=== PATIENT | female | born 1955 | race Two or more races ===

== ENCOUNTER 2018-06-21 17:36 | Emergency (ER) | payer MEDICAID, OTHER ==
[~2018-06-21] VITALS: Ht 157.5 cm; Wt 49.0 kg
[2018-06-21 17:51] VITALS: BP 147/63
[2018-06-21] MEDS ORDERED: cefTRIAXone SOD 1,000 MG VL IM ONE (20:30)
[2018-06-21] MEDS ORDERED: methylPREDNISolone SOD SUCC 125 MG/2 ML VL IM ONE (20:30)
== END 2018-06-21 21:03 | disposition home or self-care (01) ==
LOC: ER 17:46
DX: J32.9 Chronic sinusitis, unspecified (principal)
CPT/HCPCS: 70486; 96372; 99284; J0696; J2930

== ENCOUNTER 2024-10-24 10:18 | Inpatient (IN) | payer OTHER, MEDICAID ==
[~2024-10-24] VITALS: Ht 152.4 cm; Wt 51.5 kg
--- NOTE | 2024-10-24 10:33 | ED.PDOC ---
History of Present Illness HPI Comments 69-year-old female BIBA with prior medical history of hypertension, high lipids in the chief complaint of chest pain. EMS note that the patient is a Czech speaker. EMS reports the patient stated on sternal chest pain for three days after eating. Patient States the she has an increase in pain after eating and has been unable to do so since then. Patient on scene had a blood pressure of 160/80. Denies chills, fever, N/V/D, SOB. No other associated symptoms, modifiers, recent injuries or sick contacts present at this time. Time Seen by MD: 10:25 Primary Care Provider: NONE Reviewed Notes: Nurses Notes, Medications, Allergies Allergies: Coded Allergies: NO KNOWN ALLERGIES (Unverified , 06/21/18) Information Source: Patient Mode of Arrival: EMS Severity: Moderate Timing: Days Duration: Since onset, Days Prehospital treatment: None Past Medical History PAST MEDICAL HISTORY: High Lipids, HTN Surgical History: Denies all surgeries [employer] History: No Pertinent [employer] History Family History Family History: Reviewed,noncontributory to illness, Unknown Social History Smoker: Non-Smoker Alcohol: Denies ETOH Use Drugs: Denies Drug Use Lives In: Home Constitutional: denies: chills, diaphoresis, fatigue, fever, malaise, sweats, weakness, others EENTM: denies: blurred vision, double vision, ear bleeding, ear discharge, ear drainage, ear pain, ear ringing, eye pain, eye redness, hearing loss, mouth pain, mouth swelling, nasal discharge, nose bleeding, nose congestion, nose pain, photophobia, tearing, throat pain, throat swelling, voice changes, others Respiratory: denies: cough, hemoptysis, orthopnea, SOB at rest, shortness of breath, SOB with excertion, stridor, wheezing, others Cardiovascular: reports: chest pain; denies: dizzy spells, diaphoresis, Dyspnea on exertion, edema, irregular heart beat, left arm pain, lightheadedness, palpitations, PND, syncope, others Gastrointestinal: denies: abdomen distended, abdominal pain, blood streaked bowels, constipated, diarrhea, dysphagia, difficulty swallowing, hematemesis, melena, nausea, poor appetite, poor fluid intake, rectal bleeding, rectal pain, vomiting, others Genitourinary: denies: abnormal vagina bleeding, burning, dyspareunia, dysuria, flank pain, frequency, hematuria, incontinence, pain, , vagina discharge, urgency, others Neurological: denies: dizziness, fainting, headache, left sided numbness, left sided weakness, numbness, paresthesia, pre-existing deficit, right sided numbness, right sided weakness, seizure, speech problems, tingling, tremors, weakness, others Musculoskeletal: denies: back pain, gout, joint pain, joint swelling, muscle pain, muscle stiffness, neck pain, others Integumetry: denies: bruises, change in color, change in hair/nails, dryness, laceration, lesions, lumps, rash, wounds, others Allergic/Immunocompromised: denies: Difficulty Healing, Frequent Infections, Hives, Itching, others Hematologic/Lymphatic: denies: anemia, blood clots, easy bleeding, easy bruising, swollen glands, others Endocrine: denies: excessive hunger, excessive sweating, excessive thirst, excessive urination, flushing, intolerance to cold, intolerance to heat, unexplained weight gain, unexplained weight loss, others Psychiatric: denies: anxiety, bipolar disorder, depression, hopeless, panic disorder, schizophrenia, sleepless, suicidal, others All Other Systems: Reviewed and Negative Physical Exam General Appearance: Moderate Distress, Normal HEENT: Normal ENT Inspection, Pharynx Normal, TMs Normal Neck: Full Range of Motion, Non-Tender, Normal, Normal Inspection Respiratory: Chest Non-Tender, Lungs Clear, No Accessory Muscle Use, No Respiratory Distress, Normal Breath Sounds Cardiovascular: No Edema, No JVD, No Murmur, No Gallop, Normal Peripheral Pulses, Regular Rate/Rhythm Breast Exam: Deferred Gastrointestinal: No Organomegaly, Non Tender, No Pulsatile Mass, Normal Bowel Sounds, Soft Genitalia: Deferred Pelvic: Deferred Rectal: Deferred Extremities: No calf tenderness, Normal capillary refill, Normal inspection, Normal range of motion, Non-tender, No pedal edema Musculoskeletal : Apperance: Normal Neurologic: Alert, 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 Was a procedure done?: No EKG EKG : Pulse Rate (adult): 71 [place]: Normal Cardiac Rhythm: NSR Block: None Hypertrophy: None ST: Normal Differential Dx Considerations may include: Anemia Electrolyte imbalance X-Ray, Labs, Meds, VS Vital Signs Date Time Temp Pulse Resp B/P (MAP) Pulse Ox O2 Delivery O2 Flow Rate FiO2 10/24/24 13:00 56 15 150/77 (101) 98 10/24/24 11:15 63 14 97 Room Air* 0 21 10/24/24 11:15 97.9 63 14 162/76 (104) 97 97.9 10/24/24 10:59 98.0 67 16 160/80 (106) 98 98.0 10/24/24 10:33 71 10/24/24 10:21 71 Lab Test 10/24/24 12:04 10/24/24 11:21 10/24/24 10:56 Range/Units Troponin I High Sensitivity < 3 L < 3 L </=34 ng/L Urine Color Colorless Yellow Urine Clarity Clear Clear Urine pH 7.0 5.0-9.0 Urine Specific [place] 1.003 1.001-1.035 Urine Protein Negative Negative Urine Ketones Negative Negative Urine Blood 2+ H Negative /uL Urine Nitrite Negative Negative Urine Bilirubin Negative Negative Urine Urobilinogen Normal Negative mg/dL Urine Leukocyte Esterase Negative Negative /uL Urine RBC 2 0 - 4 /hpf Urine Microscopic WBC < 1 0-5 /HPF Urine Squamous Epithelial Cells None seen <5 /hpf Urine Bacteria None seen None Seen /hpf Urine Glucose Normal Normal mg/dL White Blood Count 4.8 4.4-10.8 10^3/uL Red Blood Count 4.23 4.0-5.20 10^6/uL Hemoglobin 13.0 12.2-16.2 g/dL Hematocrit 38.9 36.0-46.0 % Mean Corpuscular Volume 92.1 80.0-100.0 fL Mean Corpuscular Hemoglobin 30.8 28.0-32.0 pg Mean Corpuscular Hemoglobin Concent 33.5 32.0-36.0 g/dL Red Cell Distribution Width 13.7 11.8-14.3 % Platelet Count 220 140-450 10^3/uL Mean Platelet Volume 8.3 6.9-10.8 fL Neutrophils (%) (Auto) 75.1 37.0-80.0 % Lymphocytes (%) (Auto) 16.4 10.0-50.0 % Monocytes (%) (Auto) 7.5 0.0-12.0 % Eosinophils (%) (Auto) 0.8 0.0-7.0 % Basophils (%) (Auto) 0.2 0.0-2.0 % Neutrophils # (Auto) 3.6 1.6-8.6 10 ^3/uL Lymphocytes # (Auto) 0.8 0.4-5.4 10 ^3/uL Monocytes # (Auto) 0.4 0-1.3 10 ^3/uL Eosinophils # (Auto) 0 0-0.8 10 ^3/uL Basophils # (Auto) 0 0-0.2 10 ^3/uL Nucleated Red Blood Cells 0.0 % Sodium Level 144 136-145 mmol/L Potassium Level 3.4 L 3.5-5.1 mmol/L Chloride Level 107 98-107 mmol/L Carbon Dioxide Level 30 20-31 mmol/L Anion Gap 7 5-15 Blood Urea Nitrogen 7 L 9-23 mg/dL Creatinine 0.53 L 0.550-1.02 mg/dL Glomerular Filtration Rate Calc 99 >90 mL/min BUN/Creatinine Ratio 13.2 10.0-20.0 Serum Glucose 115 H 74-106 mg/dL Calcium Level 9.9 8.7-10.4 mg/dL Current Medications Medications (Trade) Dose Ordered Sig/Raji Route Start Time Stop Time Status Last Admin Aspirin 325 mg ONCE ONCE PO 10/24/24 10:45 10/24/24 10:46 DC 10/24/24 11:02 Patient alert. Complaining of chest pain. Has been having this pain for many days. Vitals stable. Was given aspirin. Possible pleurisy. She possibly will need stress test. Echocardiogram. Has few risk factors for coronary artery disease. EKG does not show any acute changes. Explained to the patient. Continue monitoring. Time of 1ST Reevaluation: 10:55 Reevaluation 1ST: Unchanged Patient Education/Counseling: Diagnosis, Treatment, Prognosis Family Education/Counseling: No Family Present SEPSIS Sepsis Screen Physician Orders Electrocardigram (10/24/24 10:32) Electrocardigram (10/24/24 11:32) Electrocardigram (10/24/24 13:32) Chest Portable (10/24/24 10:35) Troponin-I Hs (10/24/24 13:35) Vital Signs Date Time Temp Pulse Resp B/P (MAP) Pulse Ox O2 Delivery O2 Flow Rate FiO2 10/24/24 13:00 56 15 150/77 (101) 98 10/24/24 11:15 63 14 97 Room Air* 0 21 10/24/24 11:15 97.9 63 14 162/76 (104) 97 97.9 10/24/24 10:59 98.0 67 16 160/80 (106) 98 98.0 10/24/24 10:33 71 10/24/24 10:21 71 Laboratory Tests Test 10/24/24 10:56 White Blood Count 4.8 10^3/uL (4.4-10.8) Medications Medications Dose Ordered Sig/Raji Route Start Time Stop Time Status Last Admin Dose Admin Aspirin 325 mg ONCE ONCE PO 10/24/24 10:45 10/24/24 10:46 DC 10/24/24 11:02 Departure 1 Departure Time of Disposition: 11:20 Impression: Primary Impression: Chest pain of unknown etiology Disposition: ADMITTED INPATIENT Admit to: Med Surg Condition: Guarded Critical Care Note Critical Care Time?: Yes (90 min-critical care time only) Critical care comment: Continue to monitor Stability Stability form required: No Heart Score Heart Score: Heart Score Response (Comments) Value History Slightly Suspicious 0 EKG Normal 0 Age >65 2 Risk Factors 1 or 2 risk factors 1 Troponin Normal limit 0 Total 3 I personally scribed for JOEL ROBERTSON MD ([email or web address]) on 10/24/24 at 10:33. Electronically submitted by Darius Block ([email or web address]). JOEL ROBERTSON MD Oct 24, 2024 10:33
--- NOTE | 2024-10-24 11:05 | DVH ---
CHEST RADIOGRAPH Indication: sob Technique: Single frontal view of the chest was obtained COMPARISON: None FINDINGS: Lines and Tubes: None Lungs: Clear Pleura: No effusion. No pneumothorax. Cardiomediastinal contours: Unremarkable Bones: Unremarkable IMPRESSION: No acute disease.
[2024-10-24 11:15] VITALS: PULSE 63; RESP 14; O2SAT 97
[2024-10-24 11:28] LABS: Hematocrit 38.9 % (36.0-46.0); Hemoglobin 13.0 g/dL (12.2-16.2); Mean Corpuscular Hemoglobin 30.8 pg (28.0-32.0); Mean Corpuscular Volume 92.1 fL (80.0-100.0); Nucleated Red Blood Cells % 0.0 %
[2024-10-24 11:30] LABS: Sodium 144 mmol/L (136-145)
[2024-10-24 11:31] LABS: Anion Gap 7 (5-15); Calcium 9.9 mg/dL (8.7-10.4); Carbon Dioxide 30 mmol/L (20-31)
[2024-10-24 11:34] LABS: Chloride 107 mmol/L (98-107); Potassium 3.4 mmol/L (3.5-5.1)
[2024-10-24 11:36] LABS: BUN/Creatinine Ratio 13.2 (10.0-20.0)
[2024-10-24 11:39] LABS: Blood Urea Nitrogen 7 mg/dL (9-23); Glucose 115 mg/dL (74-106)
[2024-10-24 12:39] LABS: Urine Protein, UAD Negative (Negative)
[2024-10-24] MEDS ORDERED: LOSA-535 PO (14:35)
[2024-10-24] MEDS ORDERED: ROSU40TA47 PO (14:35)
--- NOTE | 2024-10-24 14:37 | DVHHP2 ---
History of Present Illness Reason for Visit: Abdominal pain History of Present Illness Nick Larsen is a 69-year-old female with past medical history of hypertension, hyperlipidemia, and peptic ulcer disease. Patient is English speaking, assessment was completed using the geophysics scientist iPAD. Patient states she has been experienci ng epigastric pain that feels like a pit in her stomach for 3 days. She states she was having this problem last year. Underwent an EGD, and was diagnosed with an ulcer. Since then she gets the pain intermittently, but it usually goes away in a day. This time it has lasted for 3 days prompting her to come to the hospital. She has not been able to sleep or eat for the last 3 days due to the pain, when she eats her pain worsens. Cardiovascular: HTN, hyperipidemia GI: Peptic Ulcer disease Past Surgical History: None Family History: None Smoke: No ALCOHOL: none Drugs: None Lives: with Family Domestic Violence: Neg Review of Systems Constitutional: No: Fever, Chills, Sweats, Weakness, Malaise, Other Eyes: No: Pain, Vision change, Conjunctivae inflammation, Eyelid inflammation, Other, Redness ENT: No: Ear pain, Ear discharge, Nose pain, Nose discharge, Nose congestion, Mouth pain, Mouth swelling, Throat pain, Throat swelling, Other Respiratory: No: Cough, Dry, Shortness of breath, SOB with excertion, Wheezing, Hemoptysis, Pleuritic Pain, Sputum, Wheezing, Other Cardiovascular: No: Chest Pain, Palpitations, Orthopnea, Paroxysmal Noc. Dyspnea, Edema, Lt Headedness, Other Gastrointestinal: Nausea, Abdominal Pain (epigastric pain); No: Vomiting, Diarrhea, Constipation, Melena, Hematochezia, Other Genitourinary: No Dysuria, No Frequency, No Incontinence, No Hematuria, No Retention, No Other Musculoskeletal: No: other, neck pain, shoulder pain, arm pain, back pain, hand pain, leg pain, foot pain Skin: No: Rash, Lesions, Jaundice, Bruising, Other Neurological: No: Weakness, Numbness, Incoordination, Change in speech, Confusion, Seizures, Other Allergies: Coded Allergies: NO KNOWN ALLERGIES (Unverified , 06/21/18) Medications Current Medications Medications Dose Ordered Sig/Raji Route Start Time Stop Time Status Last Admin Dose Admin Acetaminophen/ Hydrocodone Bitart 1 tab Q4HP PRN PO 7/23/25 14:45 UNV Ondansetron HCl 4 mg Q4HP PRN IV 10/24/24 14:45 UNV Docusate Sodium 100 mg BIDPRN PRN PO 10/24/24 14:45 UNV Acetaminophen 650 mg Q6HP PRN PO 10/24/24 14:45 UNV Pantoprazole Sodium 40 mg DAILY IV 10/25/24 10:00 UNV Exam Vital Signs Vital Signs Date Time Temp Pulse Resp B/P (MAP) Pulse Ox O2 Delivery O2 Flow Rate FiO2 10/24/24 13:00 56 15 150/77 (101) 98 10/24/24 11:15 Room Air* 0 21 10/24/24 11:15 97.9 97.9 General Appearance: Alert, Oriented X3, Cooperative HEENT: Atraumatic, PERRLA, EOMI Respiratory: Clear to auscultation, Normal air movement Cardiovascular: Regular rate, Normal S1, Normal S2, Other (Hypertensive) Abdominal: Normal bowel sounds, Soft, Other (epigastric pain) Extremities: No clubbing, No cyanosis, No edema, Normal pulses, No tenderness/swelling Skin: No rashes, No breakdown, No significant lesion Neuro: Normal gait, Normal speech, Strength at 5/5 X4 ext Psych/Mental Status: Mental status NL, Mood NL Labs/Xrays Labs Test 10/24/24 12:04 10/24/24 11:21 10/24/24 10:56 Range/Units Troponin I High Sensitivity < 3 L </=34 ng/L Urine Color Colorless Yellow Urine Clarity Clear Clear Urine pH 7.0 5.0-9.0 Urine Specific [place] 1.003 1.001-1.035 Urine Protein Negative Negative Urine Ketones Negative Negative Urine Blood 2+ H Negative /uL Urine Nitrite Negative Negative Urine Bilirubin Negative Negative Urine Urobilinogen Normal Negative mg/dL Urine Leukocyte Esterase Negative Negative /uL Urine RBC 2 0 - 4 /hpf Urine Microscopic WBC < 1 0-5 /HPF Urine Squamous Epithelial Cells None seen <5 /hpf Urine Bacteria None seen None Seen /hpf Urine Glucose Normal Normal mg/dL White Blood Count 4.8 4.4-10.8 10^3/uL Red Blood Count 4.23 4.0-5.20 10^6/uL Hemoglobin 13.0 12.2-16.2 g/dL Hematocrit 38.9 36.0-46.0 % Mean Corpuscular Volume 92.1 80.0-100.0 fL Mean Corpuscular Hemoglobin 30.8 28.0-32.0 pg Mean Corpuscular Hemoglobin Concent 33.5 32.0-36.0 g/dL Red Cell Distribution Width 13.7 11.8-14.3 % Platelet Count 220 140-450 10^3/uL Mean Platelet Volume 8.3 6.9-10.8 fL Neutrophils (%) (Auto) 75.1 37.0-80.0 % Lymphocytes (%) (Auto) 16.4 10.0-50.0 % Monocytes (%) (Auto) 7.5 0.0-12.0 % Eosinophils (%) (Auto) 0.8 0.0-7.0 % Basophils (%) (Auto) 0.2 0.0-2.0 % Neutrophils # (Auto) 3.6 1.6-8.6 10 ^3/uL Lymphocytes # (Auto) 0.8 0.4-5.4 10 ^3/uL Monocytes # (Auto) 0.4 0-1.3 10 ^3/uL Eosinophils # (Auto) 0 0-0.8 10 ^3/uL Basophils # (Auto) 0 0-0.2 10 ^3/uL Nucleated Red Blood Cells 0.0 % Sodium Level 144 136-145 mmol/L Potassium Level 3.4 L 3.5-5.1 mmol/L Chloride Level 107 98-107 mmol/L Carbon Dioxide Level 30 20-31 mmol/L Anion Gap 7 5-15 Blood Urea Nitrogen 7 L 9-23 mg/dL Creatinine 0.53 L 0.550-1.02 mg/dL Glomerular Filtration Rate Calc 99 >90 mL/min BUN/Creatinine Ratio 13.2 10.0-20.0 Serum Glucose 115 H 74-106 mg/dL Calcium Level 9.9 8.7-10.4 mg/dL CHEST RADIOGRAPH FINDINGS: Lines and Tubes: None Lungs: Clear Pleura: No effusion. No pneumothorax. Cardiomediastinal contours: Unremarkable Bones: Unremarkable IMPRESSION: No acute disease. SEPSIS Sepsis Screen Date sepsis recognized/suspect: Oct 24, 2024 Time Sepsis recognized/suspect: 1115 Recent Procedure: No On Antibiotic Therapy: No Respiratory Rate >20: No Heart Rate >90: No Temp<36 C (96.8 F) or >38.3 C: No SBP <90 or MAP <65 mmHG: No New Acute Mental Status Change: No Is the patient on CPAP, BIPAP,: No Physician Orders Electrocardigram (10/24/24 10:32) Electrocardigram (10/24/24 11:32) Electrocardigram (10/24/24 13:32) Chest Portable (10/24/24 10:35) Admit (10/24/24 14:31) Code Status (10/24/24 14:31) Hydrocodone-Acet 5/325mg Tab ([place] 32 (10/24/24 14:45) Ondansetron Hcl (Zofran) (10/24/24 14:45) Docusate Sodium Capsule (Colace Capsule) (10/24/24 14:45) Complete Blood Count (10/25/24 04:00) Comprehensive Metabolic Panel (10/25/24 04:00) Condition: Serious (10/24/24 14:31) Acetaminophen Tablet (Tylenol Tablet) (10/24/24 14:45) Clear Liq Diet (10/24/24 Dinner) Pantoprazole (Protonix) (10/24/24 14:45) Pantoprazole (Protonix) (10/25/24 10:00) * Gi Dvh Section Leader (10/24/24 14:31) (Nf) Losartan Potassium (10/25/24 10:00) (Nf) Rosuvastatin Calcium (10/25/24 10:00) Vital Signs Date Time Temp Pulse Resp B/P (MAP) Pulse Ox O2 Delivery O2 Flow Rate FiO2 10/24/24 13:00 56 15 150/77 (101) 98 10/24/24 11:15 63 14 97 Room Air* 0 21 10/24/24 11:15 97.9 63 14 162/76 (104) 97 97.9 10/24/24 10:59 98.0 67 16 160/80 (106) 98 98.0 10/24/24 10:33 71 10/24/24 10:21 71 Laboratory Tests Test 10/24/24 10:56 White Blood Count 4.8 10^3/uL (4.4-10.8) Medications Medications Dose Ordered Sig/Raji Route Start Time Stop Time Status Last Admin Dose Admin Aspirin 325 mg ONCE ONCE PO 10/24/24 10:45 10/24/24 10:46 DC 10/24/24 11:02 325 MG Assessment/Plan Assessment/Plan Assessment: Peptic ulcer disease, Hypertension, Hyperlipidemia, Plan: Admit to Med-Surg, GI consult, IV Protonix daily, Clear liquid diet, PRN antihypertensives, Home medications reconciled, Plan discussed with: Patient My Orders Orders - BETO BEARDEN Procedure Category Date Status Time Admit ADMIT 10/24/24 Transmitted 14:31 Code Status CODE 10/24/24 Transmitted 14:31 Hydrocodone-Acet PHA 10/24/24 Logged 5/325mg Tab ([place] 14:45 Ondansetron Hcl PHA 10/24/24 Logged (Zofran) 14:45 Docusate Sodium PHA 10/24/24 Logged Capsule (Colace 14:45 Complete Blood Count LAB 10/25/24 Verified 04:00 Comprehensive LAB 10/25/24 Verified Metabolic Panel 04:00 Condition: Serious DEBBIE 10/24/24 In Process 14:31 Acetaminophen Tablet PHA 10/24/24 Logged (Tylenol Tablet) 14:45 Clear Liq Diet DIET 10/24/24 Transmitted Dinner Pantoprazole PHA 10/24/24 Logged (Protonix) 14:45 Pantoprazole PHA 10/25/24 Logged (Protonix) 10:00 * Gi Dvh Section Leader CONS 10/24/24 Transmitted 14:31 (Nf) Losartan PHA 10/25/24 Transmitted Potassium 10:00 (Nf) Rosuvastatin PHA 10/25/24 Transmitted Calcium 10:00 Date of Service: Oct 24, 2024 Billing Provider: BETO BEARDEN Common Visit Codes: [id number] INP/OBS CARE (MOD) BETO BEARDEN Oct 24, 2024 14:37
[2024-10-24] MEDS ORDERED: ONDANSETRON HCL 4 MG/2 ML VIAL IV PRN (14:45)
[2024-10-24] MEDS ORDERED: ACETAMINOPHEN 325 MG TAB PO PRN (14:45)
[2024-10-24] MEDS ORDERED: HYDROcodone-ACET 5/325MG TAB PO PRN (14:45)
[2024-10-24] MEDS: PANTOPRAZOLE 40 MG/10 ML VIAL INJ IV ONE (15:06)
[2024-10-24 16:30] VITALS: BP 130/66; PULSE 86; RESP 16; TEMP 98; O2SAT 96
[2024-10-24 17:25] VITALS: BP 148/70; PULSE 65; RESP 20; TEMP 98.4; O2SAT 97
[2024-10-24] MEDS ORDERED: hydrALAZINE HCL 20 MG/ML VL IV PRN (17:30)
[2024-10-24 20:00] VITALS: PULSE 65
[2024-10-24 21:00] VITALS: BP 146/79; PULSE 57; RESP 16; TEMP 97.9; O2SAT 97
[2024-10-24] MEDS: ATORVASTATIN 20 MG TAB PO SCH (21:28)
[2024-10-25] VITALS (7 sets, daily range): BP systolic 126–158; BP diastolic 70–89; PULSE 52–64; RESP 16–17; TEMP 97.6–98.1; O2SAT 93–98
[2024-10-25 06:32] LABS: Albumin 3.5 g/dL (3.2-4.8); Alkaline Phosphatase 66 U/L (46-116); Anion Gap 8 (5-15); BUN/Creatinine Ratio 14.5 (10.0-20.0); Calcium 9.0 mg/dL (8.7-10.4); Carbon Dioxide 29 mmol/L (20-31); Chloride 107 mmol/L (98-107); Glucose 88 mg/dL (74-106); Potassium 3.6 mmol/L (3.5-5.1); Sodium 144 mmol/L (136-145); Total Protein 5.8 g/dL (5.7-8.2)
[2024-10-25 06:33] LABS: Bilirubin, Total 0.4 mg/dL (0.2-1.0)
[2024-10-25 06:36] LABS: Alanine Aminotransferase < 9 U/L (7-40); Blood Urea Nitrogen 8 mg/dL (9-23); Hematocrit 35.2 % (36.0-46.0); Hemoglobin 12.2 g/dL (12.2-16.2); Mean Corpuscular Hemoglobin 31.6 pg (28.0-32.0); Mean Corpuscular Volume 91.5 fL (80.0-100.0); Nucleated Red Blood Cells % 0.3 %
[2024-10-25] MEDS: PANTOPRAZOLE 40 MG/10 ML VIAL INJ IV SCH (10:17)
[2024-10-25] MEDS: LOSARTAN POTASSIUM 50 MG TAB PO SCH (10:19)
--- NOTE | 2024-10-25 12:30 | ECG ---
[facility] Test Date: 2024-10-24 Test Time: 10:21:06 Pat Name: ASHLEY RAY Department: ED Room: 0220 Gender: F Programming Intern: ZACH : [id number] Requested By: JOEL ROBERTSON Order Number: [id number] Reading MD: Measurements Intervals [place] Rate: 71 P: 47 WV: 150 QRS: 13 QRSD: 90 T: 23 QT: 387 QTc: 421 Interpretive Statements Sinus rhythm Baseline wander in lead(s) V1,V5 Please click the below link to view image of tracing.
--- NOTE | 2024-10-25 13:11 | DVHINCON2 ---
GI Consult Consult Note GI consult note Date of Consultation: 10/25/2024 Chief Complaint: Peptic ulcer disease Referring Physician: Camila NAVARRETE H&P: 69-year-old Mohawk speaking patient with past medical history of hypertension, hyperlipidemia and PUD presented to ER with complains of epigastric pain for the past three days. Assessment was completed using an iPad ham clerk. Patient admits to feeling slight decrease in pain at this time. No nausea vomiting. Denies hematemesis. No melena or red blood in stool. Status post EGD one year ago diagnosed with gastritis, has been treated with PPI which the takes every day. No weight loss. Status post colonoscopy one year ago within normal limits per patient. No blood thinners Past Medical History: HTN, hyperipidemia GI: Peptic Ulcer disease Past Surgical History: None Social History: NO smoking, drinking ETOH and use of illegal drugs. Family History: Noncontributory Review of Systems: Constitutional: no fever, chill, weight loss HEENT: no eye pain, no hearing loss, no oral lesion, no scleral icterus Heart: no chest pain, no chest pressure Lung: no cough, no dyspnea with exertion Abdomen: see HPI Physical exam: General: NAD, AAOX3 Chest: lung diaz clear to auscultation Heart: RRR, no murmur Abdomen: + epigastric tenderness to palpation, +BS Labs: Labs Test 10/25/24 05:41 10/24/24 12:04 10/24/24 11:21 Range/Units White Blood Count 4.2 L 4.4-10.8 10^3/uL Red Blood Count 3.85 L 4.0-5.20 10^6/uL Hemoglobin 12.2 12.2-16.2 g/dL Hematocrit 35.2 L 36.0-46.0 % Mean Corpuscular Volume 91.5 80.0-100.0 fL Mean Corpuscular Hemoglobin 31.6 28.0-32.0 pg Mean Corpuscular Hemoglobin Concent 34.5 32.0-36.0 g/dL Red Cell Distribution Width 13.4 11.8-14.3 % Platelet Count 238 140-450 10^3/uL Mean Platelet Volume 8.6 6.9-10.8 fL Neutrophils (%) (Auto) 56.3 37.0-80.0 % Lymphocytes (%) (Auto) 29.5 10.0-50.0 % Monocytes (%) (Auto) 11.2 0.0-12.0 % Eosinophils (%) (Auto) 2.3 0.0-7.0 % Basophils (%) (Auto) 0.7 0.0-2.0 % Neutrophils # (Auto) 2.4 1.6-8.6 10 ^3/uL Lymphocytes # (Auto) 1.2 0.4-5.4 10 ^3/uL Monocytes # (Auto) 0.5 0-1.3 10 ^3/uL Eosinophils # (Auto) 0.1 0-0.8 10 ^3/uL Basophils # (Auto) 0 0-0.2 10 ^3/uL Nucleated Red Blood Cells 0.3 % Platelet Estimate Adequate Large Platelets Few Sodium Level 144 136-145 mmol/L Potassium Level 3.6 3.5-5.1 mmol/L Chloride Level 107 98-107 mmol/L Carbon Dioxide Level 29 20-31 mmol/L Anion Gap 8 5-15 Blood Urea Nitrogen 8 L 9-23 mg/dL Creatinine 0.55 0.550-1.02 mg/dL Glomerular Filtration Rate Calc 99 >90 mL/min BUN/Creatinine Ratio 14.5 10.0-20.0 Serum Glucose 88 74-106 mg/dL Calcium Level 9.0 8.7-10.4 mg/dL Total Bilirubin 0.4 0.2-1.0 mg/dL Aspartate Amino Transferase (AST) 17 13-40 U/L Alanine Aminotransferase (ALT) < 9 7-40 U/L Alkaline Phosphatase 66 46-116 U/L Total Protein 5.8 5.7-8.2 g/dL Albumin 3.5 3.2-4.8 g/dL Troponin I High Sensitivity < 3 L </=34 ng/L Urine Color Colorless Yellow Urine Clarity Clear Clear Urine pH 7.0 5.0-9.0 Urine Specific [place] 1.003 1.001-1.035 Urine Protein Negative Negative Urine Ketones Negative Negative Urine Blood 2+ H Negative /uL Urine Nitrite Negative Negative Urine Bilirubin Negative Negative Urine Urobilinogen Normal Negative mg/dL Urine Leukocyte Esterase Negative Negative /uL Urine RBC 2 0 - 4 /hpf Urine Microscopic WBC < 1 0-5 /HPF Urine Squamous Epithelial Cells None seen <5 /hpf Urine Bacteria None seen None Seen /hpf Urine Glucose Normal Normal mg/dL Imaging: Assessment: Abdominal pain History of PUD History of gastritis Plan: Discussed with Dr. Barajas - Pt will be scheduled for an EGD tomorrow 10/26/2024. Pt was informed of the risks (bleeding, infection, perforation, reaction to sedation medications and cardiopulmonary arrest) and benefit and is agreeable to undergo the procedures. Continue Protonix Discussed plan with patient and RN Thank you for this consult Date of Service: Oct 25, 2024 Billing Provider: RICA TOSCANO Common Visit Codes: CONSULT ONLY Consultation Codes: [id number] CONSULT <60MIN RICA TOSCANO Oct 25, 2024 13:11
--- NOTE | 2024-10-25 13:43 | DVHPNRES ---
Progress Note Date Seen: Oct 25, 2024 Resident Creating Document: SAHRA SANDOVAL RESIDENT Has the PT tested + for MRSA If YES, has PT been informed?: No Medical Necessity Reason Pt with a Central, PICC or Fol: No Subjective Review of Systems This is 69-year-old Chinese speaking female with a past medical history of hypertension, hyperlipidemia and peptic ulcer disease presents to the ED with complaints of epigastric pain for the past 3 days. Patient reports the pain as feeling like "pit" in her stomach which began 3 days ago and has been constant, unlike previous episodes that resolved within a day. The pain worsens with eating and has caused her to have poor oral intake and difficulty sleeping. She denies nausea, vomiting, hematemesis, melena, or hematochezia. She reports mild improvement in pain at the time of assessment. She underwent an EGD on year ago and was diagnosed with gastritis/peptic ulcer disease. for which she has been taking a daily PPI. She also had a colonoscopy one year ago, reported normal. She denies any current use of blood thinners. No weight loss. Cardiovascular: HTN, hyperipidemia GI: Peptic Ulcer disease Past Surgical History: None Family History: None Smoke: No ALCOHOL: none Drugs: None Lives: with Family Domestic Violence: Neg Review of Systems Constitutional: No: Fever, Chills, Sweats, Weakness, Malaise, Other Eyes: No: Pain, Vision change, Conjunctivae inflammation, Eyelid inflammation, Other, Redness ENT: No: Ear pain, Ear discharge, Nose pain, Nose discharge, Nose congestion, Mouth pain, Mouth swelling, Throat pain, Throat swelling, Other Respiratory: No: Cough, Dry, Shortness of breath, SOB with excertion, Wheezing, Hemoptysis, Pleuritic Pain, Sputum, Wheezing, Other Cardiovascular: No: Chest Pain, Palpitations, Orthopnea, Paroxysmal Noc. Dyspnea, Edema, Lt Headedness, Other Gastrointestinal: Nausea, Abdominal Pain (epigastric pain); No: Vomiting, Diarrhea, Constipation, Melena, Hematochezia, Other Genitourinary: No Dysuria, No Frequency, No Incontinence, No Hematuria, No Retention, No Other Musculoskeletal: No: other, neck pain, shoulder pain, arm pain, back pain, hand pain, leg pain, foot pain Skin: No: Rash, Lesions, Jaundice, Bruising, Other Neurological: No: Weakness, Numbness, Incoordination, Change in speech, Confusion, Seizures, Other Allergies: Coded Allergies: NO KNOWN ALLERGIES (Unverified , 06/21/18) Patient reports: No new complaints (RN) Objective vital signs Vital Sign Date Time Temp Pulse Resp B/P (MAP) Pulse Ox O2 Delivery O2 Flow Rate FiO2 10/25/24 10:19 137/56 10/25/24 07:30 16 Room Air* 0 21 10/25/24 05:00 97.7 52 98 97.7 Total Intake and Output 10/24/24 10/24/24 10/25/24 15:00 23:00 07:00 Intake Total 236 ml 200 ml Balance 236 ml 200 ml medications Current Medications Medications Dose Ordered Sig/Raji Route Start Time Stop Time Status Last Admin Dose Admin Acetaminophen/ Hydrocodone Bitart 1 tab Q4HP PRN PO 10/24/24 14:45 Ondansetron HCl 4 mg Q4HP PRN IV 10/24/24 14:45 Docusate Sodium 100 mg BIDPRN PRN PO 10/24/24 14:45 Acetaminophen 650 mg Q6HP PRN PO 10/24/24 14:45 Pantoprazole Sodium 40 mg DAILY IV 10/25/24 10:00 10/25/24 10:17 40 MG Losartan Potassium 100 mg DAILY PO 10/25/24 10:00 10/25/24 10:19 100 MG Atorvastatin Calcium 80 mg HS PO 10/24/24 22:00 10/24/24 21:35 80 MG Hydralazine HCl 10 mg Q6HP PRN IV 10/24/24 17:30 laboratory and microbiology Laboratory Tests 10/25/24 05:41 Test 10/25/24 05:41 Range/Units Serum Glucose 88 74-106 mg/dL Labs and/or images reviewed: Labs reviewed by me, Image(s) reviewed by me (RN) Problem List/Assessment/Plan Problem List/Assessment/Plan # Abdominal pain due to acute gastritis -continue Sucralfate (Carafate Susp) 1g PO BID -continue Pantoprazole Sodium (Protonix) 40 mg IV daily -continue Acetaminophen (Tylenol)- 650 mg PRN -continue Hydrocodone/Acetaminophen ([place] 5/325 mg) - 1 tab PO Q4H PRN # History of PUD -Discussed with Dr. Barajas -Pt will be scheduled for an EGD tomorrow 10/26/2024. Pt was informed of the risks (bleeding, infection, perforation, reaction to sedation medications and cardiopulmonary arrest) and benefit and is agreeable to undergo the procedures. Plan discussed with: Patient, Other Sepsis reassessment post fluid Respiratory Effort: Non-Labored Respiratory Pattern: Regular SAHRA SANDOVAL RESIDENT Oct 25, 2024 13:43
[2024-10-25] MEDS: SUCRALFATE 1 GM/10 ML ORAL SUSP PO SCH (21:19)
[2024-10-26] VITALS (8 sets, daily range): BP systolic 120–158; BP diastolic 64–88; PULSE 54–82; RESP 12–21; TEMP 97.5–99.1; O2SAT 94–100
[2024-10-26 06:57] LABS: INR 0.99 (0.9-1.15); Prothrombin Time 10.5 sec (9.3-11.8)
[2024-10-26 07:33] LABS: Calcium 9.7 mg/dL (8.7-10.4); Chloride 105 mmol/L (98-107); Sodium 144 mmol/L (136-145)
[2024-10-26 07:34] LABS: Anion Gap 8 (5-15); Carbon Dioxide 31 mmol/L (20-31)
[2024-10-26 07:35] LABS: Hematocrit 35.4 % (36.0-46.0); Hemoglobin 12.4 g/dL (12.2-16.2); Mean Corpuscular Hemoglobin 31.7 pg (28.0-32.0); Mean Corpuscular Volume 90.5 fL (80.0-100.0); Nucleated Red Blood Cells % 0.2 %; Potassium 3.3 mmol/L (3.5-5.1)
[2024-10-26 07:39] LABS: BUN/Creatinine Ratio 13.3 (10.0-20.0); Glucose 89 mg/dL (74-106)
[2024-10-26 07:43] LABS: Blood Urea Nitrogen 8 mg/dL (9-23)
--- NOTE | 2024-10-26 10:46 | DVHPNRES ---
Progress Note Date Seen: Oct 26, 2024 Resident Creating Document: SAHRA SANDOVAL RESIDENT Has the PT tested + for MRSA If YES, has PT been informed?: No Medical Necessity Reason Pt with a Central, PICC or Fol: No Subjective Review of Systems This is 69-year-old Pashto speaking female with a past medical history of hypertension, hyperlipidemia and peptic ulcer disease presents to the ED with complaints of epigastric pain for the past 3 days. Patient reports the pain as feeling like "pit" in her stomach which began 3 days ago and has been constant, unlike previous episodes that resolved within a day. The pain worsens with eating and has caused her to have poor oral intake and difficulty sleeping. She denies nausea, vomiting, hematemesis, melena, or hematochezia. She reports mild improvement in pain at the time of assessment. She underwent an EGD on year ago and was diagnosed with gastritis/peptic ulcer disease. for which she has been taking a daily PPI. She also had a colonoscopy one year ago, reported normal. She denies any current use of blood thinners. No weight loss. The patient underwent an EDG without any complications. Patient is currently resting in the bed. Cardiovascular: HTN, hyperipidemia GI: Peptic Ulcer disease Past Surgical History: None Family History: None Smoke: No ALCOHOL: none Drugs: None Lives: with Family Domestic Violence: Neg Review of Systems Constitutional: No: Fever, Chills, Sweats, Weakness, Malaise, Other Eyes: No: Pain, Vision change, Conjunctivae inflammation, Eyelid inflammation, Other, Redness ENT: No: Ear pain, Ear discharge, Nose pain, Nose discharge, Nose congestion, Mouth pain, Mouth swelling, Throat pain, Throat swelling, Other Respiratory: No: Cough, Dry, Shortness of breath, SOB with excertion, Wheezing, Hemoptysis, Pleuritic Pain, Sputum, Wheezing, Other Cardiovascular: No: Chest Pain, Palpitations, Orthopnea, Paroxysmal Noc. Dyspnea, Edema, Lt Headedness, Other Gastrointestinal: Nausea, Abdominal Pain (epigastric pain); No: Vomiting, Diarrhea, Constipation, Melena, Hematochezia, Other Genitourinary: No Dysuria, No Frequency, No Incontinence, No Hematuria, No Retention, No Other Musculoskeletal: No: other, neck pain, shoulder pain, arm pain, back pain, hand pain, leg pain, foot pain Skin: No: Rash, Lesions, Jaundice, Bruising, Other Neurological: No: Weakness, Numbness, Incoordination, Change in speech, Confusion, Seizures, Other Allergies: Coded Allergies: NO KNOWN ALLERGIES (Unverified , 06/21/18) Objective vital signs Vital Sign Date Time Temp Pulse Resp B/P (MAP) Pulse Ox O2 Delivery O2 Flow Rate FiO2 10/26/24 09:00 98.8 54 16 148/77 (100) 99 98.8 10/25/24 20:00 Room Air* 0 21 Total Intake and Output 10/25/24 10/25/24 10/26/24 15:00 23:00 07:00 Intake Total 289 ml 500 ml Balance 289 ml 500 ml medications Current Medications Medications Dose Ordered Sig/Raji Route Start Time Stop Time Status Last Admin Dose Admin Acetaminophen/ Hydrocodone Bitart 1 tab Q4HP PRN PO 10/24/24 14:45 Ondansetron HCl 4 mg Q4HP PRN IV 10/24/24 14:45 Docusate Sodium 100 mg BIDPRN PRN PO 10/24/24 14:45 Acetaminophen 650 mg Q6HP PRN PO 10/24/24 14:45 Pantoprazole Sodium 40 mg DAILY IV 10/25/24 10:00 10/25/24 10:17 40 MG Losartan Potassium 100 mg DAILY PO 10/25/24 10:00 10/25/24 10:19 100 MG Atorvastatin Calcium 80 mg HS PO 10/24/24 22:00 10/25/24 21:19 80 MG Sucralfate 1 gm BID@0600,2200 PO 10/25/24 22:00 10/25/24 21:19 1 GM Examination General Appearance: Alert, Oriented X3, Cooperative HEENT: Atraumatic, PERRLA, EOMI Respiratory: Clear to auscultation, Normal air movement Cardiovascular: Regular rate, Normal S1, Normal S2, Other (Hypertensive) Abdominal: Normal bowel sounds, Soft, Other (epigastric pain) Extremities: No clubbing, No cyanosis, No edema, Normal pulses, No tenderness/swelling Skin: No rashes, No breakdown, No significant lesion Neuro: Normal gait, Normal speech, Strength at 5/5 X4 ext Psych/Mental Status: Mental status NL, Mood NL laboratory and microbiology Laboratory Tests 10/26/24 05:41 Test 10/26/24 05:41 Range/Units Serum Glucose 89 74-106 mg/dL Labs and/or images reviewed: Labs reviewed by me, Image(s) reviewed by me Problem List/Assessment/Plan Problem List/Assessment/Plan # Abdominal pain due to acute gastritis -continue Sucralfate (Carafate Susp) 1g PO BID -continue Pantoprazole Sodium (Protonix) 40 mg IV daily -continue Acetaminophen (Tylenol)- 650 mg PRN -continue Hydrocodone/Acetaminophen ([place] 5/325 mg) - 1 tab PO Q4H PRN # History of PUD -Discussed with Dr. Barajas -Pt done with EGD today 10/26/2024. Pt was informed of the risks (bleeding, infection, perforation, reaction to sedation medications and cardiopulmonary arrest) and benefit and is agreeable to undergo the procedures. Plan discussed with: Patient, Other (RN) Sepsis reassessment post fluid Respiratory Effort: Non-Labored Respiratory Pattern: Regular SAHRA SANDOVAL RESIDENT Oct 26, 2024 10:46
[2024-10-26] MEDS ORDERED: MIDAZOLAM HCL 2MG/2ML 2ml VIAL (1mg/ml) ONE (10:50)
[2024-10-26] MEDS ORDERED: fentaNYL CITRATE 100 MCG/2 ML VL ONE (10:50)
[2024-10-26] MEDS ORDERED: KETAMINE 50mg/ML 1ml syringe ONE (10:50)
[2024-10-26] MEDS ORDERED: SODIUM CHLORIDE LOCK 10 ML ONE (10:50)
[2024-10-26] MEDS ORDERED: PROPOFOL 10 MG/ML 20 ML IV ONE (10:50)
[2024-10-26] MEDS ORDERED: LIDOCAINE 1% INJ PF 5ML AMP ONE (10:50)
[2024-10-26] MEDS ORDERED: ONDANSETRON HCL 4 MG/2 ML VIAL ONE (10:50)
--- NOTE | 2024-10-26 11:08 | DVHOP2 ---
Operative Report DATE OF OPERATION: 10/26/24 PROCEDURE: Upper Endoscopy with biopsy. PREOPERATIVE INDICATION: The patient is a 69 -year-old female undergoing endoscopy for epigastric pain POSTOPERATIVE DIAGNOSES: 1. 1-2 cm sliding-type hiatal hernia with slightly irregular squamocolumnar junction and grade a erosive esophagitis 2. Mild gastritis otherwise normal examination up to the 2nd and 3rd part of the duodenum no active ulcer disease at this time PROCEDURE PERFORMED BY: Enoc Barajas GI NURSE: Lui SCOPE: Olympus videoendoscope. ASA CLASS: 3 PREOPERATIVE MEDICATIONS: Dr. Sherlyn Hall PROCEDURE IN DETAIL: After obtaining an informed consent, the patient was placed on left lateral decubitus position. The patient was then sedated with the above medications. A bite block was placed between her teeth. The endoscope was then passed through the oropharynx, into the esophagus, and through the stomach and pylorus up to the second and third part of the duodenum. The endoscope was then withdrawn. Second and 3rd part of the duodenum and the duodenal bulb were normal. Duodenal biopsies were obtained. The pre-pyloric area antrum and body showed mild gastritis with some hyperemia. Gastric biopsies were obtained. On retroflexion the fundus cardia and angularis were normal. There was no active peptic ulcer disease. The endoscope was then withdrawn into distal esophagus where the patient had a 1-2 cm sliding-type hiatal hernia There was a slightly irregular squamocolumnar junction and mild grade a erosive esophagitis. GE junction biopsies were obtained. The remaining distal and proximal esophagus and oropharynx were unremarkable The patient tolerated the procedure well without difficulty. COMPLICATIONS : None SPECIMENS: Duodenal biopsies Gastric biopsies GE junction biopsies DISPOSITION: Transfer back to the floor Stable PLAN: 1. Await for biopsy result 2. Will place pt on Protonix 40 mg bid p.o. 3. Resume GI soft diet advance as tolerated 4. Carafate 1 g p.o. twice a day 5. Outpatient follow up with me in 4-6 weeks to review results and discuss further management ENOC BARAJAS MD Oct 26, 2024 11:08
[2024-10-26] MEDS: LIDOCAINE VISCOUS 2% 15ML UD ONE (11:48)
[2024-10-26] MEDS: PANTOPRAZOLE 40 MG TAB PO SCH (16:44)
[2024-10-26] MEDS: SUCRALFATE 1 GM/10 ML ORAL SUSP PO SCH (21:20)
[2024-10-27 00:46] VITALS: BP 141/80; PULSE 57; RESP 16; TEMP 97.7; O2SAT 98
[2024-10-27 05:00] VITALS: BP 147/79; PULSE 59; RESP 16; TEMP 97.8; O2SAT 96
[2024-10-27 08:00] VITALS: PULSE 53; RESP 16; O2SAT 100
[2024-10-27 08:42] VITALS: BP 147/78; PULSE 53; RESP 16; TEMP 97.8; O2SAT 100
[2024-10-27] MEDS: DOCUSATE SOD 100 MG CAP PO PRN (09:56)
[2024-10-27 13:20] VITALS: BP 122/73; PULSE 71; RESP 16; TEMP 97.8; O2SAT 97
[2024-10-27 16:13] LABS: Chloride 104 mmol/L (98-107); Potassium 3.9 mmol/L (3.5-5.1); Sodium 143 mmol/L (136-145)
[2024-10-27 16:14] LABS: Anion Gap 9 (5-15); Carbon Dioxide 30 mmol/L (20-31)
[2024-10-27 16:15] LABS: Calcium 9.3 mg/dL (8.7-10.4)
[2024-10-27 16:19] LABS: BUN/Creatinine Ratio 17.5 (10.0-20.0); Blood Urea Nitrogen 11 mg/dL (9-23)
[2024-10-27 16:21] LABS: Glucose 112 mg/dL (74-106)
[2024-10-27 16:42] VITALS: BP 156/78; PULSE 59; RESP 16; TEMP 97.7; O2SAT 96
--- NOTE | 2024-10-27 18:10 | DVHDS2 ---
Discharge Summary Date of Admission Oct 24, 2024 at 14:31 Date of Discharge: Oct 27, 2024 Admitting Diagnosis 69-year-old lady admitted to the hospital from the emergency room with abdominal pain. Labs/Diagnostic Data: Laboratory Results Test 10/27/24 15:55 10/26/24 05:41 10/25/24 05:41 10/24/24 12:04 Sodium Level 143 mmol/L (136-145) Potassium Level 3.9 mmol/L (3.5-5.1) Chloride Level 104 mmol/L (98-107) Carbon Dioxide Level 30 mmol/L (20-31) Anion Gap 9 (5-15) Blood Urea Nitrogen 11 mg/dL (9-23) Creatinine 0.63 mg/dL (0.550-1.02) Glomerular Filtration Rate Calc 95 mL/min (>90) BUN/Creatinine Ratio 17.5 (10.0-20.0) Serum Glucose 112 mg/dL (74-106) Calcium Level 9.3 mg/dL (8.7-10.4) White Blood Count 3.9 10^3/uL (4.4-10.8) Red Blood Count 3.92 10^6/uL (4.0-5.20) Hemoglobin 12.4 g/dL (12.2-16.2) Hematocrit 35.4 % (36.0-46.0) Mean Corpuscular Volume 90.5 fL (80.0-100.0) Mean Corpuscular Hemoglobin 31.7 pg (28.0-32.0) Mean Corpuscular Hemoglobin Concent 35.1 g/dL (32.0-36.0) Red Cell Distribution Width 12.9 % (11.8-14.3) Platelet Count 243 10^3/uL (140-450) Mean Platelet Volume 7.6 fL (6.9-10.8) Neutrophils (%) (Auto) 63.6 % (37.0-80.0) Lymphocytes (%) (Auto) 23.9 % (10.0-50.0) Monocytes (%) (Auto) 10.6 % (0.0-12.0) Eosinophils (%) (Auto) 1.6 % (0.0-7.0) Basophils (%) (Auto) 0.3 % (0.0-2.0) Neutrophils # (Auto) 2.5 10 ^3/uL (1.6-8.6) Lymphocytes # (Auto) 0.9 10 ^3/uL (0.4-5.4) Monocytes # (Auto) 0.4 10 ^3/uL (0-1.3) Eosinophils # (Auto) 0.1 10 ^3/uL (0-0.8) Basophils # (Auto) 0 10 ^3/uL (0-0.2) Nucleated Red Blood Cells 0.2 % Prothrombin Time 10.5 sec (9.3-11.8) Prothrombin Time INR 0.99 (0.9-1.15) Platelet Estimate Adequate Large Platelets Few Total Bilirubin 0.4 mg/dL (0.2-1.0) Aspartate Amino Transferase (AST) 17 U/L (13-40) Alanine Aminotransferase (ALT) < 9 U/L (7-40) Alkaline Phosphatase 66 U/L (46-116) Total Protein 5.8 g/dL (5.7-8.2) Albumin 3.5 g/dL (3.2-4.8) Troponin I High Sensitivity < 3 ng/L (</=34) Test 10/24/24 11:21 Urine Color Colorless (Yellow) Urine Clarity Clear (Clear) Urine pH 7.0 (5.0-9.0) Urine Specific [place] 1.003 (1.001-1.035) Urine Protein Negative (Negative) Urine Ketones Negative (Negative) Urine Blood 2+ /uL (Negative) Urine Nitrite Negative (Negative) Urine Bilirubin Negative (Negative) Urine Urobilinogen Normal mg/dL (Negative) Urine Leukocyte Esterase Negative /uL (Negative) Urine RBC 2 /hpf (0 - 4) Urine Microscopic WBC < 1 /HPF (0-5) Urine Squamous Epithelial Cells None seen /hpf (<5) Urine Bacteria None seen /hpf (None Seen) Urine Glucose Normal mg/dL (Normal) Other Laboratory Tests 10/27/24 15:55 10/26/24 05:41 Brief Hx & Hospital Course: Patient was seen by GI and she had EGD done which showed hiatal hernia and erosive esophagitis and gastritis. She was given Protonix and Carafate. She has been doing okay. Her potassium was low and she was given replacement and it was corrected. Patient wants to go home today to follow with PCP and GI. Consults/Reason for consult GI consultation. EGD done. Showed hiatal hernia and erosive esophagitis and gastritis Condition at Discharge: Good Final Diagnosis/Problems List Peptic ulcer disease Discharge Disposition: Home Discharge Instruct/Medications Diet: Regular Diet comment: No acidic food. No spicy food. Smaller meals Activity: No Restrictions, As Tolerated Follow Up/Referral: PCP within one week GI within two weeks Medications: Protonix 40 mg b.i.d. for 30 days Carafate 1 g q.i.d. for 30 days Resume previous home medications Scheduled Losartan Potassium (Losartan Potassium), 1 TAB PO DAILY, (Reported) Pantoprazole Sodium Sesquihydr (Pantoprazole Sodium), 40 MG PO BID@0600,1700 Rosuvastatin Calcium (Rosuvastatin Calcium), 1 TAB PO DAILY, (Reported) Sucralfate (Carafate Susp), 1 GM PO BID@0600,2200 35 Discharge Statement: "Patient was advised to return to the ER or call 911 if any headaches, dizziness, shortness of breath, chest pain, abdominal pain, bleeding, fevers, or worsening of medical condition. Patient was counseled about treatment plan, medications, possible side effects, patientverbalized understanding. All questions were answered to the best of my ability. This discharge took greater then 30 minutes in planning, reviewing documentation, counseling the patient, and discussing with other team members." ASSESSMENT ASSESSMENT Assessment Peptic ulcer disease Date of Service: Oct 27, 2024 Billing Provider: MANDO WILCOX MD Common Visit Codes: 02688-CEV/OBS DISCH DAY >30min MANDO WILCOX MD Oct 27, 2024 18:10
[2024-10-27] MEDS ORDERED: PANT40T PO (18:12)
[2024-10-27] MEDS ORDERED: SUCR1SUS26 PO (18:12)
== END 2024-10-27 19:00 | disposition home or self-care (01) | DRG 392 ==
LOC: EDBD 10:18 → ER 10:18 → EDUNIT# 10:18 → OVERFLOW 14:31 → CENTRAL 15:33
PROVIDERS: ADMIT Student in an Organized Health Care Education/Training Program; ATTEND Student in an Organized Health Care Education/Training Program
PROC: 0DB68ZX Excision of Stomach, Via Natural or Artificial Opening Endoscopic, Diagnostic (ICD-10-PCS; 2024-10-26)
PROC: 0DB48ZX Excision of Esophagogastric Junction, Via Natural or Artificial Opening Endoscopic, Diagnostic (ICD-10-PCS; 2024-10-26)
PROC: 0DB98ZX Excision of Duodenum, Via Natural or Artificial Opening Endoscopic, Diagnostic (ICD-10-PCS; principal; 2024-10-26 10:50)
DX: K29.00 Acute gastritis without bleeding (principal); K22.10 Ulcer of esophagus without bleeding; E78.5 Hyperlipidemia, unspecified; I10 Essential (primary) hypertension; K44.9 Diaphragmatic hernia without obstruction or gangrene; Z79.899 Other long term (current) drug therapy
CPT/HCPCS: 36415; 43239; 71045; 80048; 80053; 81001; 84484; 85025; 85610; 93005; 96374; 99291; 99292; G0378; J2250; J2405; J2470; J2704